=== PATIENT | male | born 1985 | race African-American/Black ===

== ENCOUNTER 2020-12-22 09:04 | Emergency (ER) | payer BC, SELFPAY ==
--- NOTE | ~2020-12-22 | XR_ITS ---
EXAMINATION: XR chest 1V portable DATE: 12/22/2020 10:44 INDICATION: Right chest pain. TECHNIQUE: A single frontal view of the chest was obtained. COMPARISON: None. FINDINGS: The chest demonstrates clear lungs without pneumonia, pleural effusion, or pneumothorax. Th e heart size is normal. IMPRESSION: 1. No acute cardiopulmonary disease. Reviewed, dictated and finalized at location [facility]
[2020-12-22 09:30] VITALS: BP 132/85; PULSE 70; RESP 16; TEMP 36.4; O2SAT 98
--- NOTE | 2020-12-22 10:23 | ED.GENADULT ---
HPI - General Adult General Chief complaint: Unspecified <KIRIT Chance Last Filed: 12/22/20 11:00> Stated complaint: right side pain <KIRIT Chance Last Filed: 12/22/20 11:00> Time Seen by Provider: 12/22/20 09:28 <KIRIT Chance Last Filed: 12/22/20 11:00> Source: patient and family <KIRIT Chance Last Filed: 12/22/20 11:00> Mode of arrival: ambulatory <KIRIT Chance Last Filed: 12/22/20 11:00> History of Present Illness HPI narrative: Patient is a 35-year-old male who presents with pain to the right flank region just under the ribs that has been present for over a week patient notes that it occurs when he sneezes or coughs patient currently denying any pain and that the pain comes and goes but does persistently hurt when he sneezes patient denies any history of similar occurrence injury or trauma patient otherwise notes no illness or other complaints and is otherwise healthy and has not taken anything for his symptoms <KIRIT Chance Last Filed: 12/22/20 11:00> Related Data Home medications: Home Medications Medication Instructions Recorded Confirmed No Home Medications 12/22/20 <KIRIT Chance Last Filed: 12/22/20 11:00> Allergies/adverse reactions: Allergies Allergy/AdvReac Type Severity Reaction Status Date / Time No Known Allergies Allergy Verified 12/22/20 09:32 <KIRIT Chance Last Filed: 12/22/20 11:00> Review of Systems Review of Systems: All systems reviewed & are unremarkable except as noted in HPI and below <KIRIT Chance Last Filed: 12/22/20 11:00> Exam Narrative: Exam Narrative: GENERAL: Well-appearing, well-nourished, and in no acute distress. HEAD: Normocephalic, atraumatic. EYES: PERRLA and EOMI. ENT: Nares clear, no rhinorrhea or epistaxis. Mucous membranes moist. NECK: Supple. No adenopathy or masses. CHEST: Clear to auscultation. No respiratory distress. No wheezes rales or rhonchi HEART: Regular rate and rhythm. No murmur heard. Normal peripheral pulses. ABDOMEN: Soft, nontender, nondistended. No reproducible tenderness in the abdomen flank or ribs there is no rash or other concerning findings no masses EXTREMITIES: Normal range of motion. No edema. SKIN: Warm, dry, no rash. NEURO: No focal deficits. Alert and oriented x3. Cranial nerves II through XII grossly intact. PSYCH: Normal mood and affect. <Liang Carty PA-C - Last Filed: 12/22/20 11:00> Course Course Emergency Course: Patient presented with intermittent flank pain not sure of the etiology at this time patient's abdomen was nontender denying any dyspnea will be following with primary care for further evaluation unsure as to the etiology of his mild bump in his total bilirubin remainder of hepatic function is unremarkable. Patient will be discharged with follow-up and has been given reasons to return patient is comfortable with this plan and agrees. Patient without other high risk changes in his blood work or imaging. Patient is afebrile nontoxic-appearing no distress without emesis. Patient's pain is reproducible with sneezing and coughing however he does not currently have any URI symptoms and notes that he is having seasonal allergy symptoms which will also be treated <KIRIT Chance Last Filed: 12/22/20 11:00> Vital Signs Vital signs: Vital Signs Temperature 97.5 F L 12/22/20 09:30 Pulse Rate 70 12/22/20 09:30 Respiratory Rate 16 12/22/20 09:30 Blood Pressure 132/85 12/22/20 09:30 Pulse Oximetry 98 12/22/20 09:30 Temperature 97.5 F L 12/22/20 09:30 Pulse Rate 70 12/22/20 09:30 Respiratory Rate 18 12/22/20 11:31 Blood Pressure 132/85 12/22/20 09:30 Pulse Oximetry 98 12/22/20 11:31 <Liang Carty PA-C - Last Filed: 12/22/20 11:00> Vital Signs Temperature 97.5 F L 12/22/20 09:30 Pulse Rate 70
[2020-12-22 10:30] LABS: Basophils Percent Auto 0.8 % (0.2-1.2); Eosinophils Absolute Auto 0.4 K/mm3 (0-0.3); Eosinophils Percent Auto 6.9 % (0-4.4); Hematocrit 42.1 % (42.0-52.0); Hemoglobin 14.3 g/dL (14.0-18.0); Immature Granulocyte Absolute 0.01 K/mm3 (0.00-0.031); Immature Granulocyte Percent A 0.2 % (0-0.5); Lymphocytes Absolute Auto 1.92 K/mm3 (0.9-3.2); Lymphocytes Percent Auto 36.8 % (18.3-44.2); Mean Corpuscular Hemoglobin 28.9 pg (26-34); Mean Corpuscular Volume 85.2 fl (80-100); Mean Platelet Volume 12.2 fl (7.4-10.4); Monocytes Absolute Auto 0.5 K/mm3 (0.1-0.6); Neutrophils Absolute Auto 2.4 K/mm3 (1.3-6.7); Neutrophils Percent Auto 46.3 % (45.5-73.1); Platelet Count Result 166 k/mm3 (150-375); Red Blood Count 4.94 M/mm3 (4.6-6.20); Red Cell Distribution Width 12.5 % (11.5-14.5); White Blood Count 5.2 K/mm3 (4.5-10.0)
[2020-12-22 10:32] LABS: Add Urine Microscopic? NO; Appearance Urine Clear (Clear); Bilirubin Urine Negative (Negative); Blood Urine Negative (Negative); Color Urine Straw (Yellow); Glucose Urine UA Negative (Negative); Ketones Urine Negative (Negative); Leukocyte Esterase Ur Negative LEU/UL (Negative); Nitrate Urine Negative (Negative); Protein Urine Negative (Negative); Urobilinogen Urine Negative mg/dL (<2.0)
[2020-12-22 10:43] LABS: Alanine Aminotransferase 35 U/L (4-50); Albumin Level 4.2 g/dL (3.5-5.1); Alkaline Phosphatase 55 U/L (38-126); Anion Gap 4 mmol/L (8-16); Aspartate Amino Transferase 39 U/L (17-59); Bilirubin,Total 1.7 mg/dL (0.2-1.3); Blood Urea Nitrogen 13 mg/dL (9-20); Calcium 8.7 mg/dL (8.4-10.2); Carbon Dioxide 34 mmol/L (22-30); Chloride 102 mmol/L (98-107); Estimated CRCL calculation 89 ml/min; Estimated Glomerular Filt Rate > 60; Glucose 91 mg/dL (75-110); Potassium 3.6 mmol/L (3.4-5.0); Sodium 140 mmol/L (137-145)
[2020-12-22 11:31] VITALS: RESP 18; O2SAT 98
== END 2020-12-22 11:33 | disposition home or self-care (01) ==
PROVIDERS: Emergency Medicine Emergency Medical Services; Emergency Provider General Practice
DX: R10.9 Unspecified abdominal pain (principal)
CPT/HCPCS: 36415; 71045; 80053; 81003; 85025; 99283